=== PATIENT | male | born 1955 | race African-American/Black ===

== ENCOUNTER 2024-04-21 16:53 | Emergency (ER) | payer SELFPAY ==
[2024-04-21 17:01] VITALS: BP 137/84
[2024-04-21 17:06] VITALS: BP 146/85
--- NOTE | 2024-04-21 17:07 | ED.GENMED ---
History of Present Illness
General
Chief Complaint: Weakness
Source: patient
Exam Limitations: none
Time Seen by Provider: 04/21/24 17:00
History of Present Illness
History of Present Illness:
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 EMS got there and they found him head down over a table. He was responsive. He denies any chest
pain headache abdominal pain nausea vomiting or shortness of breath. Blood sugar en route was 97. Patient denies any unilateral weakness. No other complaints at this time
Phy Exam
Physical Exam
Physical Exam:
General: Well-appearing male no acute respiratory distress
Neurologic: Alert oriented to person place and time no facial asymmetry no drift no new lateral weakness no aphasia or dysarthria
HEENT: Normocephalic atraumatic
Heart: Regular rate and rhythm
Lungs: Clear no wheeze
Extremities: No cyanosis
Skin is warm no rash
Abdomen is soft nontender nondistended
Course
Orders/Labs/Results
Orders:
Orders
04/21/24 17:01
Electrocardiogram (*1) Urgent
Reason for Study: Fatigue / Weakness
CT Head W/o Iv Contrast Urgent
Comment:
Reason For Exam: weakness
EKG- Treatment ONCE
04/21/24 17:02
CR Chest - 2 Views Urgent
Comment:
Reason For Exam: weakness
04/21/24 17:20
COVID-19 Antigen Urgent
Source: Nasal Swab
Complete Blood Count/With Diff Urgent
Comprehensive Metabolic Panel Urgent
TSH Reflex To Free T4 Urgent
Comment: ADD ON
Troponin I Urgent
Influenza A+B Rapid Molecular Urgent
PARTHA Source: Nasal Swab
Specimen Description:
04/21/24 18:49
Add On- LAB Urgent
Tests Added?: TSH reflex T4
04/21/24 19:19
Urinalysis Reflex To Culture Urgent
Date Specimen was Collected: 04/21/24
Time Specimen was Collected: 19:18
Urine Microscopic Reflex Cult Urgent
Urine Culture Urgent
PARTHA Source: U
Specimen Description:
Date Specimen was Collected: 04/21/24
Time Specimen was Collected: 19:18
Abnormal Lab Results
04/21/24 04/21/24
17:20 19:19
RBC 4.45 L 10^6/uL
(4.70-6.10)
Hgb 12.4 L g/dL
(13.0-18.0)
Hct 36.6 L %
(39.0-52.0)
MPV 10.5 H fL
(7.4-10.4)
Glucose 141 H mg/dl
(70-99)
Urine Nitrite (Reflex) Positive A
(Negative)
04/21/24 17:20
04/21/24 17:20
Vital Signs
Initial and Last Documented VS:
Initial Vital Signs
Temp Pulse Resp BP Pulse Ox
98.2 F 72 16 137/84 99
04/21/24 17:01 04/21/24 17:01 04/21/24 17:01 04/21/24 17:01 04/21/24 17:01
Last Documented Vital Signs
Temp Pulse Resp BP Pulse Ox
98.2 F 73 15 142/81 98
04/21/24 17:01 04/21/24 18:45 04/21/24 18:45 04/21/24 18:41 04/21/24 17:25
MDM/Problems Addressed
Differential Diagnosis Includes:
Generalized weakness. Will check electrolytes blood count for anemia or evidence of dehydration. Troponin pending secondary to diabetic state with EKG CT of the head pending as well
*Critical Care Note
Total Time (30-74mins, 75-104mins- exclusive of procedures): Not Applicable
Update Note
Update Note:
Workup here unremarkable including CT head COVID test chest x-ray urinalysis. Patient has ambulated to the bathroom several times on his own here. Patient here with generalized fatigue but no obvious etiology on workup today. Stable for discharge
ED Attending Note
-
Portions of this chart may have been created with voice recognition software.� Occasional wrong word or��sound alike� substitutions may have occurred due to the inherent limitations of voice recognition software.
Discharge Plan
Departure
Patient Disposition: Home (Routine Discharge)
Date of Disposition: 04/21/24
Time of Disposition: 20:14
Patient with high blood pressure during this ER visit?: No
Discharge Problem:
Fatigue
Instructions: Generalized Weakness (DC)
Activity Restrictions/Additional Instructions:
Please return here if need. Follow up with PMD.
Interventions
Interventions:
*Risk Screen - Suicide Last Done: 04/21/24 17:01
*General Assessment Last Done: 04/21/24 17:01
*Neglect/Abuse Screening Last Done: 04/21/24 17:01
ED- Fall Risk Assessment Last Done: 04/21/24 17:25
ED- Cardiac Assessment Last Done: 04/21/24 17:25
ED- Neurological Assessment Last Done: 04/21/24 17:25
ED- Pulmonary Assessment Last Done: 04/21/24 17:25
Discharge Date and Time
Print Language: KYRGYZ
[2024-04-21 17:43] LABS: % Basophils 0.2 % (0-2); % Immature Granulocytes 0.2 % (0-0.5); % Lymphocytes 30.6 % (20.5-51.1); % Monocytes 5.8 % (1.7-9.3); % Neutrophils 62.2 % (42.2-75.2); Absolute Eosinophils 0.1 10^3/uL (0-0.7); Absolute Lymphocytes 1.8 10^3/uL (1.2-3.4); Absolute Monocytes 0.3 10^3/uL (0.1-0.6); Absolute Neutrophils 3.7 10^3/uL (1.4-6.5); Hematocrit 36.6 % (39.0-52.0); Hemoglobin 12.4 g/dL (13.0-18.0); Mean Corp Hgb Conc. 33.9 g/dL (33.0-37.0); Mean Corpuscular Hgb 27.9 pg (27.0-31.0); Mean Corpuscular Volume 82.2 fL (80.0-94.0); Mean Platelet Volume 10.5 fL (7.4-10.4); Nucleated Red Blood Cells % 0 % (-); Platelet Count 283 10^3/uL (130-400); Red Blood Cell Count 4.45 10^6/uL (4.70-6.10); White Blood Cell Count 5.9 10^3/uL (4.8-10.8)
[2024-04-21 17:50] LABS: COVID-19 Antigen Negative (Negative)
[2024-04-21 17:53] LABS: ALT (SGPT) 21 U/L (0-50); AST (SGOT) 29 U/L (17-59); Albumin 4.1 g/dl (3.5-5.0); Alkaline Phosphatase 63 U/L (38-126); Blood Urea Nitrogen 17 mg/dl (9-20); Calcium 9.1 mg/dl (8.4-10.2); Carbon Dioxide 25 mmol/L (22-30); Chloride 98 mmol/L (98-107); Glucose 141 mg/dl (70-99); Potassium 3.5 mmol/L (3.5-5.1); Sodium 137 mmol/L (135-145); Total Bilirubin 0.9 mg/dl (0.2-1.3); Total Protein 7.5 g/dl (6.3-8.2); eGFR > 60.00
[2024-04-21 18:01] LABS: Troponin I < 0.012 ng/ml
[2024-04-21 18:41] VITALS: BP 142/81
[2024-04-21 19:00] VITALS: BP 141/85
--- NOTE | 2024-04-21 19:00 | EDRN ---
Report received, introduced myself to patient, who ambulated into the restroom and back in bed resting comfortably.
[2024-04-21 19:26] LABS: Urine Albumin Negative (Neg - Trace); Urine Bilirubin Negative (Negative); Urine Character Clear (Clear); Urine Color Yellow; Urine Glucose Negative (Negative); Urine Ketone Negative (Negative); Urine Leukocyte Negative (Negative); Urine Nitrite Positive (Negative); Urine Occult Blood Negative (Negative); Urine Urobilinogen 1+ (Neg - 1+)
[2024-04-21 19:37] LABS: Urine Red Blood Cell None Seen /HPF (0-2); Urine White Cell 0-2 /HPF (0-5)
[2024-04-21 19:57] LABS: TSH Reflex To Free T4 1.49 uIU/ml (0.47-4.68)
[2024-04-21 20:00] VITALS: BP 146/93
== END 2024-04-21 21:00 | disposition home or self-care (01) ==
LOC: EMR 16:53
PROVIDERS: Physician Assistant; EMERGENCY PHYSICIAN Emergency Medicine
DX: R53.83 Other fatigue (principal); E11.9 Type 2 diabetes mellitus without complications
CPT/HCPCS: 99285; 70450; 71046; 80053; 81003; 81015; 84443; 84484; 85025; 87086; 87502; 87811; 93005

== ENCOUNTER 2024-07-13 16:20 | Emergency (ER) | payer OTHER, SELFPAY ==
[2024-07-13 16:29] VITALS: BP 146/86
[2024-07-13 23:22] VITALS: BP 169/101
[2024-07-13 23:25] VITALS: BP 169/101; BMI 27.8
--- NOTE | 2024-07-13 23:32 | ED.GENMED ---
History of Present Illness
<Issa Kemp MD, Resident - Last Filed: 07/14/24 02:38>
General
Chief Complaint: Chest Pain
Source: patient
Time Seen by Provider: 07/13/24 23:32
Nursing documentation reviewed up to this point in time: agreed with
Travel History
Have you traveled to any high risk areas for coronavirus over the past 14 days?: No
Have you had any contact with someone who has COVID-19?: No
Do you have any symptoms of coronavirus? Fever > 100 degrees, chills, cough, shortness of breath, sore throat, loss of taste or smell, muscle aches, or headache?: No
History of Present Illness
History of Present Illness:
68-year-old male with past medical history of asthma, hyperlipidemia, dla-hegkmnk-zpttrttah diabetes mellitus, CVA who presented to the emergency department via EMS for syncope while at work at [employer]. He reports that he has
started having chest pain and feeling lightheaded and asked to sit down and passed out for about 1 minutes. He was given orange juice after he woke up and was told that his serum glucose was low. He reports that he was having left-sided chest and
abdominal pain that does not radiate. However, his abdominal pain has resolved but he continues to have left-sided substernal chest pain rated 4/10, does not radiate, does not worsen with deep breath, worse with chest palpation/auscultation. He
reports that his cousin and was better few weeks ago and he just got the news about 10 days ago. He reports that he has not been eating well since then and has been having intermittent chest pain. He denies any recent trauma, denied SOB,
headache, fever, chills, cough, nausea/vomiting/diarrhea/constipation.
Past History
<Issa Kemp MD, Resident - Last Filed: 07/14/24 02:38>
Past History
ED Past Medical History: Asthma, CVA, HTN, Hypercholesterolemia and NIDDM
ED Past Surgical History: Appendectomy, Cholecystectomy, Urological (Prostatectomy) and Other (Hernia repair)
Social History
Tobacco: Non-smoker
Alcohol: None
Drug: None
Living: alone
Employment: Employed
Review of Systems
<Issa Kemp MD, Resident - Last Filed: 07/14/24 02:38>
Review of Systems
All Other Systems: ROS reviewed and negative except as documented in HPI and ROS
Phy Exam
<Issa Kemp MD, Resident - Last Filed: 07/14/24 02:38>
Physical Exam
Physical Exam:
GENERAL: Alert and oriented x 3, NAD. Afebrile
HEAD: NC/AT
OROPHARYNX: no exudate or ulcers.
EYE: pupils equal and reactive extraocular muscles
NECK: Supple, no significant adenopathy.
CARDIAC: Regular rate and rhythm without any obvious murmurs.
LUNGS: Normal breath sounds,normal-no rhonchi. Not bronchospastic.
ABDOMEN: Soft, NT, ND, no peritoneal signs.
NEUROLOGICAL: Alert and oriented x 3. No focal neurological deficit.
SKIN: Warm and dry, no rash or lesion, no discoloration, skin intact.
MUSCULOSKELETAL: Full range of motion of extremities.
LYMPHATIC:No lymph nodes on his neck or supraclavicular area.
PSYCH: Normal and appropriate interaction.
Scores
<Issa Kemp MD, Resident - Last Filed: 07/14/24 02:38>
Heart Score for Chest Pain Patients
STEMI patient?: No
History: Slightly or Non-Suspicious
ECG: Normal
Age: >/= 65 years
Risk Factors: 1 or 2 Risk Factors
Troponin: </= Normal Limit
Heart Score for Chest Pain Patients: 3
Heart Score Risk: 2.5% MACE over next 6 weeks
Course
<Issa Vineet Kemp MD, Resident - Last Filed: 07/14/24 02:38>
Orders/Labs/Results
Orders:
Orders
07/13/24 16:28
Electrocardiogram (*1) Urgent
Reason for Study: Syncope
EKG- Treatment ONCE
07/13/24 23:34
Complete Blood Count/With Diff Urgent
07/13/24 23:35
Comprehensive Metabolic Panel Urgent
NT-proBNP Urgent
Comment: ADD ON
Troponin I Urgent
07/13/24 23:58
Add On- LAB Urgent
Tests Added?: proBNP
07/14/24 00:08
Orthostatic VS- Treatment ONCE
07/14/24 00:25
CT Chest Angio W/wo Iv Contras Stat
Comment:
Reason For Exam: Acute chest pain, syncope
Abnormal Lab Results
07/13/24 07/13/24
23:34 23:35
RBC 4.62 L 10^6/uL
(4.70-6.10)
Hgb 12.6 L g/dL
(13.0-18.0)
Hct 37.4 L %
(39.0-52.0)
MPV 10.6 H fL
(7.4-10.4)
Chloride 97 L mmol/L
(98-107)
Glucose 127 H mg/dl
(70-99)
07/13/24 23:34
07/13/24 23:35
Vital Signs
Initial and Last Documented VS:
Initial Vital Signs
Temp Pulse Resp BP Pulse Ox
98.2 F 74 20 146/86 98
07/13/24 16:29 07/13/24 16:29 07/13/24 16:29 07/13/24 16:29 07/13/24 16:29
Last Documented Vital Signs
Temp Pulse Resp BP Pulse Ox
97.9 F 66 14 155/104 96
07/13/24 23:25 07/14/24 02:00 07/14/24 02:00 07/14/24 02:00 07/14/24 02:00
<Orquidea Carranza, DO - Last Filed: 07/14/24 01:33>
Orders/Labs/Results
Orders:
Orders
07/13/24 16:28
Electrocardiogram (*1) Urgent
Reason for Study: Syncope
EKG- Treatment ONCE
07/13/24 23:34
Complete Blood Count/With Diff Urgent
07/13/24 23:35
Comprehensive Metabolic Panel Urgent
NT-proBNP Urgent
Comment: ADD ON
Troponin I Urgent
07/13/24 23:58
Add On- LAB Urgent
Tests Added?: proBNP
07/14/24 00:08
Orthostatic VS- Treatment ONCE
07/14/24 00:25
CT Chest Angio W/wo Iv Contras Stat
Comment:
Reason For Exam: Acute chest pain, syncope
Abnormal Lab Results
07/13/24 07/13/24
23:34 23:35
RBC 4.62 L 10^6/uL
(4.70-6.10)
Hgb 12.6 L g/dL
(13.0-18.0)
Hct 37.4 L %
(39.0-52.0)
MPV 10.6 H fL
(7.4-10.4)
Chloride 97 L mmol/L
(98-107)
Glucose 127 H mg/dl
(70-99)
07/13/24 23:34
07/13/24 23:35
Vital Signs
Initial and Last Documented VS:
Initial Vital Signs
Temp Pulse Resp BP Pulse Ox
98.2 F 74 20 146/86 98
07/13/24 16:29 07/13/24 16:29 07/13/24 16:29 07/13/24 16:29 07/13/24 16:29
Last Documented Vital Signs
Temp Pulse Resp BP Pulse Ox
97.9 F 66 14 155/104 96
07/13/24 23:25 07/14/24 02:00 07/14/24 02:00 07/14/24 02:00 07/14/24 02:00
<Issa Kemp MD, Resident - Last Filed: 07/14/24 02:38>
MDM/Problems Addressed
MDM/Problems Addressed:
68-year-old male with PMH of essential hypertension, hyperlipidemia, DM, asthma, who presented to the emergency department via EMS after a witnessed syncope. He was seen here in April 2024 for similar symptoms. At that time, head CT reported
moderate ventriculomegaly with suspicious NPH. His EKG today reports normal sinus rhythm. His labs were unremarkable including proBNP and troponin was negative. He is here hemodynamically stable with BP 171/101, pulse 67, respiration 15, he is
afebrile saturating at 97% on room air. Per patient, his BP at home is around 140 systolic.
Differential diagnosis includes aortic dissection given his uncontrolled blood pressure, tachyarrhythmia, vasovagal syncope. Takotsubo cardiomyopathy less likely given normal troponin and EKG with no elevated T waves. We will obtain CT angio of
chest to assess for aortic dissection and assess orthostasis.
<Issa Kemp MD, Resident - Last Filed: 07/14/24 02:38>
*Radiology
Radiology exam reviewed: preliminary read by ED provider (NAD)
*Critical Care Note
Total Time (30-74mins, 75-104mins- exclusive of procedures): Not Applicable
<Issa Kemp MD, Resident - Last Filed: 07/14/24 02:38>
Update Note
Update Note:
Patient reports feeling better, orthostatics vitals were negative. CT angiogram of chest with moderate concentric left ventricular hypertrophy, negative for PE, pleural or pericardial effusion. Given his chronic uncontrolled hypertension, LVH is
expected. Patient is hemodynamically stable for discharge to follow-up with his aerial hurricane hunter and his primary care physician. Will give referral to cardiology.
ED Attending Note
<Issa Kemp MD, Resident - Last Filed: 07/14/24 02:38>
-
Portions of this chart may have been created with voice recognition software.� Occasional wrong word or��sound alike� substitutions may have occurred due to the inherent limitations of voice recognition software.
<Orquidea Carranza DO - Last Filed: 07/14/24 01:33>
ED Attending Note
Patient seen and examined by attending physician: Yes
I performed a history and physical exam of patient and discussed management with resident, I reviewed resident's note and agree with documented findings and plan of care.: Yes
ED Attending Note:
This is a 68-year-old gentleman who has history of gdz-knhreat-rmjwpooiz diabetes, hypertension, hyperlipidemia, asthma. 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
onset of left lateral chest discomfort accompanied with lightheadedness, dizziness without a sense of spinning. He sat down in a chair but then according to EMS and fellow staff members patient briefly lost consciousness. He did not fall out of
the chair, denies injury.
Evaluated in this ED April 2024 for somewhat similar lightheadedness where he needed to sit in a chair and then during that visit placed his head on a table. Unremarkable ED visit with unremarkable laboratory studies, unremarkable CT of the
head, unremarkable chest x-ray.
He is only maintained on metformin for diabetes. States his blood sugars are generally well-controlled.
Questionable report of slightly low glucose and was given orange juice by halfway staff. Accu-Chek 150 by EMS and blood pressure prehospital 136-145 systolic over 70s.
Currently feeling improved. Does continue with mild left lateral chest ache.
He has had no cough, no shortness of breath, no dyspnea on exertion, no headache, no weakness. He does note sporadic right arm numbness that generally occurs when he is sleeping or lying down. Has had no right arm numbness recently.
Concern for vasovagal episode, concern for ACS, less likely hypoglycemia but also a consideration.
He is noted to be moderately hypertensive and states his blood pressure generally runs 140s to 150s systolic, with acute chest pain, syncope versus near syncope must consider thoracic aortic dissection.
EKG shows normal sinus rhythm, flipped T waves laterally, similar and unchanged from previous April 2024.
Labs show mild anemia, similar and unchanged from previous.
Chemistries are unremarkable. Normal troponin. Random blood sugar 127. Normal electrolytes.
Will plan for CT angio of the chest.
Will check orthostatic vital signs.
Discharge Plan
Departure
Patient Disposition: Home (Routine Discharge)
Date of Disposition: 07/14/24
Time of Disposition: 02:19
Patient with high blood pressure during this ER visit?: Yes
Condition: Good
Covid-19: Not Applicable
Discharge Problem:
Hypertension, uncontrolled, Chest discomfort, Hyperlipidemia associated with type 2 diabetes mellitus, History of cardioembolic cerebrovascular accident (CVA)
Instructions: Syncope (Fainting) (DC), Costochondritis (DC), Chest Pain CBC Follow Up, BLOOD PRESSURE
Referrals:
Marvin Rico MD [Active] - Follow up in 5-7 days
Junior Palma MD [Family Provider] - Follow up in 2-3 days
Activity Restrictions/Additional Instructions:
It was a pleasure meeting you and taking part in your care. We hope for your continued healing and wellness.
Please read discharge instructions in their entirety. However, they are for general education and may not describe your exact diagnosis at discharge. Information on your ER visit and medical conditions were discussed with you along with appropriate
follow up information.
You presented to the emergency department with chest discomfort/pain and syncope. Your lab studies, chest x-ray was normal and CT angiography negative for aortic dissection. Your orthostatic vitals was also normal. However, your blood pressure
was elevated throughout your stay in the emergency department, indicating a poorly controlled hypertension.
Please take your medications as prescribed and follow up with your primary care provider and the aerial hurricane hunter involved in your care for any further adjustments to your medication regimen as necessary. We have also included a referral to cardiology
team in case you need to call and make an appointment with them. Please schedule a follow up appointment as directed. Call to schedule an appointment.
Please return to the emergency department with ANY change in, persisting, or worsening of symptoms. If any of your symptoms do not improve, or persist, or become more severe within 6-12 hours, please return to the emergency department for further
care.
Please return to the emergency department if you develop a headache, neck pain/stiffness, fever greater than 100.4F, chest pain, shortness of breath, persistent nausea, vomiting, slurred speech, difficulty walking, numbness/tingling, weakness, signs
of infection or any other symptoms that are worrisome to you.
If you have any questions or concerns please do not hesitate to call the Hospital at .
Interventions
Interventions:
*Risk Screen - Suicide Last Done: 07/13/24 16:29
*General Assessment Last Done: 07/13/24 16:29
*Neglect/Abuse Screening Last Done: 07/13/24 16:29
ED- Fall Risk Assessment Last Done: 07/13/24 23:25
*ED COVID-19 Vaccine History Last Done: 07/13/24 23:25
ED- Cardiac Assessment Last Done: 07/13/24 23:25
ED- Neurological Assessment Last Done: 07/13/24 23:25
Discharge Date and Time
Print Language: SWEDISH
[2024-07-13 23:43] VITALS: BP 168/101
[2024-07-13 23:54] LABS: % Basophils 0.1 % (0-2); % Eosinophils 1.8 % (0-6); % Immature Granulocytes 0.3 % (0-0.5); % Lymphocytes 32.9 % (20.5-51.1); % Monocytes 6.3 % (1.7-9.3); % Neutrophils 58.6 % (42.2-75.2); Absolute Eosinophils 0.1 10^3/uL (0-0.7); Absolute Lymphocytes 2.3 10^3/uL (1.2-3.4); Absolute Monocytes 0.5 10^3/uL (0.1-0.6); Absolute Neutrophils 4.2 10^3/uL (1.4-6.5); Hematocrit 37.4 % (39.0-52.0); Hemoglobin 12.6 g/dL (13.0-18.0); Mean Corp Hgb Conc. 33.7 g/dL (33.0-37.0); Mean Corpuscular Hgb 27.3 pg (27.0-31.0); Mean Platelet Volume 10.6 fL (7.4-10.4); Nucleated Red Blood Cells % 0 % (-); Platelet Count 287 10^3/uL (130-400); Red Blood Cell Count 4.62 10^6/uL (4.70-6.10); Red Cell Dist. Width 13.2 % (11.5-14.5); White Blood Cell Count 7.1 10^3/uL (4.8-10.8)
[2024-07-14] VITALS (9 sets, daily range): BP systolic 155–177; BP diastolic 90–109; PULSE 71–80
[2024-07-14 00:14] LABS: ALT (SGPT) 24 U/L (0-50); AST (SGOT) 24 U/L (17-59); Albumin 4.5 g/dl (3.5-5.0); Alkaline Phosphatase 78 U/L (38-126); Blood Urea Nitrogen 16 mg/dl (9-20); Calcium 9.2 mg/dl (8.4-10.2); Carbon Dioxide 28 mmol/L (22-30); Chloride 97 mmol/L (98-107); Estimated Creatinine Clearance 74 ml/min; Glucose 127 mg/dl (70-99); Potassium 3.9 mmol/L (3.5-5.1); Sodium 136 mmol/L (135-145); Total Bilirubin 1.3 mg/dl (0.2-1.3); eGFR > 60.00
[2024-07-14 00:24] LABS: Troponin I < 0.012 ng/ml
== END 2024-07-14 03:14 | disposition home or self-care (01) ==
LOC: EMR 16:20
PROVIDERS: Emergency Medicine; EMERGENCY PHYSICIAN Emergency Medicine; FAMILY PHYSICIAN Family Medicine
DX: I10 Essential (primary) hypertension (principal); R07.89 Other chest pain; E78.00 Pure hypercholesterolemia, unspecified; E11.69 Type 2 diabetes mellitus with other specified complication; Z86.73 Personal history of transient ischemic attack (TIA), and cerebral infarction without residual deficits; J45.909 Unspecified asthma, uncomplicated; D64.9 Anemia, unspecified; Z90.49 Acquired absence of other specified parts of digestive tract; Z90.79 Acquired absence of other genital organ(s)
CPT/HCPCS: 99284; 71275; 80053; 83880; 84484; 85025; 93005; Q9967